=== PATIENT | male | born 1955 | race Caucasian/White ===

== ENCOUNTER 2021-11-25 06:30 | Emergency (ER) | payer MEDICARE ==
[~2021-11-25] VITALS: Ht 185.4 cm; Wt 118.0 kg
--- NOTE | 2021-11-25 06:36 | PHYS DOC ---
Past Medical History Past Medical History: Anxiety, Depression Past Surgical History: No Surgical History Smoking Status: Current Every Day Smoker Alcohol Use: Heavy Drug Use: Marijuana General Adult EDM: Chief Complaint: EYE PROBLEMS HPI: HPI: Patient is a 66 year old male who presents via private vehicle, ambulatory, with multiple facial and periocular lacerations. He reports that his injury occurred shortly prior to arrival. He reports that he tripped over a rolled up carpet and fell and hit his face against his bathtub. He denies loss of consciousness. He denies any premonitory symptoms, he denies dizziness, nausea or vomiting. He denies any visual acuity changes or vision loss. Denies chest pain or dyspnea.. He has a rather large, jagged laceration of his mid forehead, between his eyes, he also has a significant laceration of his right eye, he has avulsed his medial canthus and lower lid, he has a laceration just below his lower lid as well. He is unsure of his tetanus status. He does not take anticoagulant medications. Review of Systems: Review of Systems: Constitutional: Denies fever or chills. [] Eyes: Denies change in visual acuity. Right lower eyelid laceration, right medial canthus laceration/avulsion. No vision loss. No actual ocular pain. HENT: Denies nasal congestion or sore throat. Denies dental trauma. Denies difficulty swallowing. Denies epistaxis or rhinorrhea. Facial lacerations and right periocular lacerations. Respiratory: Denies cough or shortness of breath. [] Cardiovascular: Denies chest pain or edema. [] GI: Denies abdominal pain, nausea, vomiting Musculoskeletal: Denies back pain or joint pain. [] Integument: Facial lacerations Neurologic: Denies headache, focal weakness or sensory changes. Denies dizziness or syncope. Psychiatric: Chronic anxiety Heart Score: C/O Chest Pain: No Risk Factors: Risk Factors: DM, Current or recent (<one month) smoker, HTN, HLP, family history of CAD, obesity. Risk Scores: Score 0 - 3: 2.5% MACE over next 6 weeks - Discharge Home Score 4 - 6: 20.3% MACE over next 6 weeks - Admit for Clinical Observation Score 7 - 10: 72.7% MACE over next 6 weeks - Early Invasive Strategies Physical Exam: PE: Constitutional: Well developed, well nourished, no acute distress, non-toxic appearance. [] HENT: There is a jagged laceration of his mid forehead, between his eyes. There is subcutaneous tissue involvement with multiple flaps. No active bleeding. No significant cephalhematoma is noted. Oropharynx is patent and clear, no dental trauma, TMs are clear bilaterally, nares are patent without rhinorrhea epistaxis. Septum appears midline. The right medial canthus is completely avulsed away, lacerated, is somewhat sagging underneath the right eye. He has a subcutaneous linear laceration just below the mid lower eyelid as well. Aside from the canthus being lacerated, there is no other lid laceration noted. Eyes: PERRL, EOMI, conjunctiva normal, no discharge. No hyphema noted. No enophthalmos or exophthalmos noted. No pain with extraocular movement. Globes appear to be grossly intact. There is minimal soft tissue swelling and bruising around the lower right eyelid and laceration sites, but no periorbital edema, ecchymoses are noted. Neck: Normal range of motion, no tenderness, supple, no stridor. Trachea is midline. Cardiovascular: Warm and well-perfused appearing, no peripheral edema, +2 radial pulses bilaterally Lungs & Thorax: Respirations are nonlabored. Equal chest rise. Speaks in full and clear sentences. Skin: Facial and periocular lacerations as above. Back: No deformity, full range of motion Extremities: No limb deformity, no edema, no limb tenderness Neurologic: He is awake, alert, oriented x3, cranial nerves II through XII are grossly intact, sensation is grossly intact, gross motor intact, gait is steady, speech is clear and fluent Psychologic: He is anxious but cooperative EKG: EKG: [] Radiology/Procedures: Radiology/Procedures: IMAGING REPORT Signed PATIENT: NILSA DOMINGUEZ ACCOUNT: [id number] : 1955 LOCATION: ER AGE: 66 SEX: M EXAM STATUS: REG ER ORD. PHYSICIAN: BIRD MAR DO REASON: fall, facial injury PROCEDURE: CT MAXILLOFACIAL WO CONTRAST EXAM: CT head, facial bones, and cervical spine without contrast INDICATION: Fall, facial injury COMPARISON: None TECHNIQUE: Axial CT imaging through the head, facial bones, and cervical spine without intravenous contrast. Sagittal and coronal reformats were obtained. One or more of the following individualized dose reduction techniques were utilized for this examination: 1. Automated exposure control 2. Adjustment of the mA and/or kV according to patient size 3. Use of iterative reconstruction technique. FINDINGS: CT head: No intracranial hemorrhage, acute infarct, or mass lesion. Ventricles and sulci are mildly enlarged. Pappas-white matter differentiation is maintained. The skull and scalp are intact. Small mucous retention cyst in the left maxillary sinus. Paranasal sinuses otherwise clear. There are surgical changes of the left mastoid air cells. Globes and orbits are intact. 1.1 cm probable sebaceous cyst in the left occipital scalp. CT facial bones: No acute fracture. Small retention cyst in the left maxillary sinus. Paranasal sinuses are otherwise clear. There are surgical changes of the left mastoid air cells. Right mastoid air cells are clear. The globes and orbits are intact. Small soft tissue laceration/contusion over the right cheek with some adjacent soft tissue gas. 1.1 cm subcutaneous change nodule along left occipital scalp, likely a sebaceous cyst. CT cervical spine: No acute fracture. There is straightening of lordosis. There is 2 mm anterolisthesis of C4 on C5 and C5 on C6. Moderate disc space narrowing at C6-C7 with anterior osteophytes. Milder disc space narrowing elsewhere. Multilevel facet arthrosis, severe on the right as C4-C5 and on the left at C5-C6. Very degrees of foraminal narrowing, severe on the right at C4-C5. Moderate at several other levels. No bony canal narrowing. Prevertebral soft tissues normal. IMPRESSION: 1. No acute intracranial abnormality. 2. No acute facial fracture. Soft tissue laceration/contusion of the right cheek. 3. No acute osseous abnormality of the cervical spine. 4. Multilevel degenerative disc disease and facet arthrosis. Electronically signed by: Thelma Lentz MD (11/25/2021 7:39 AM) [id number] DICTATED and SIGNED BY: THELMA LENTZ MD DATE: 11/25/21 [id number] 0 Course & Med Decision Making: Course & Med Decision Making Pertinent Labs and Imaging studies reviewed. (See chart for details) The patient is kept n.p.o. He declined pain medication. Tetanus is updated. He tolerated laceration repair well. See associated note for details of this. The patient's eyelid injury is quite complex, I feel he needs to be seen by ophthalmology and oculoplastics. I have recommended transfer to [facility] I spoke with transfer line, the patient will be transported to 's ER, the patient will be seen by Myesha Bae of ophthalmology. The patient understands the plan of care. Dragon Disclaimer: Dragon Disclaimer: This electronic medical record was generated, in whole or in part, using a voice recognition dictation system. Laceration Repair Lac Repair Indication: Complex laceration of the mid forehead Procedure: The patient was placed in the appropriate position, supine on the ED gurney. 1% lidocaine with epinephrine was utilized for local anesthesia, adequate anesthesia was achieved. The area was then cleaned with Betadine and irrigated copiously with normal saline. The wound was explored. No visible foreign bodies are noted. No gross contamination. Minimal sharp debridement was required. The laceration was closed in 2 layers. Utilized 5-0 Vicryl subcuticular sutures for deep wound closure. A total of 5 sutures were utilized for this purpose. The skin was closed utilizing simple interrupted technique, and a total of twelve 5-0 Ethilon sutures were used. Adequate wound eversion, hemostasis and closure was achieved. The wound was dressed with gauze covering. Total repaired wound length: 6 cm The patient tolerated the procedure well Complications: None. Departure Departure Impression: Primary Impression: Complex laceration of face Qualified Codes: S01.91XA - Laceration without foreign body of unspecified part of head, initial encounter Additional Impressions: Avulsion of eyelid Traumatic laceration of right lacrimal duct Qualified Codes: S01.111A - Laceration without foreign body of right eyelid and periocular area, initial encounter Laceration, eyelid, right Qualified Codes: S01.111A - Laceration without foreign body of right eyelid and periocular area, initial encounter Alcohol intoxication Qualified Codes: F10.929 - Alcohol use, unspecified with intoxication, unspecified Disposition: 02 [facility] Condition: STABLE BIRD MAR DO Nov 25, 2021 06:36
[2021-11-25] MEDS ORDERED: TETANUS AND DIPHTHERIA TOX/PF 0.5 ML DISP.SYRIN. VAX IM ONE (06:45)
[2021-11-25] MEDS ORDERED: LIDOCAINE 1%/EPI 1:100,000 20 ML VIAL. INJ ONE (06:45)
[2021-11-25 07:04] LABS: BASO # 0.1 x10^3/uL (0.0-0.2); BASO % 0 % (0-3); EOS # 0.3 x10^3/uL (0.0-0.7); EOS % 2 % (0-3); HEMATOCRIT 40.7 % (39.0-53.0); HEMOGLOBIN 13.6 g/dL (13.0-17.5); LYMPH # 2.1 x10^3/uL (1.0-4.8); LYMPH % 15 % (24-48); MEAN CORPUSCULAR HEMOGLOBIN 33 pg (25-35); MEAN CORPUSCULAR HGB CONC 33 g/dL (31-37); MEAN CORPUSCULAR VOLUME 99 fL (79-100); MONO # 0.8 x10^3/uL (0.0-1.1); MONO % 6 % (0-9); NEUT # 10.6 x10^3/uL (1.8-7.7); NEUT % 76 % (31-73); PLATELET COUNT 238 x10^3/uL (140-400); RED BLOOD COUNT 4.13 x10^6/uL (4.30-5.70); RED CELL DISTRIBUTION WIDTH 12.8 % (11.5-14.5); WHITE BLOOD COUNT 13.9 x10^3/uL (4.0-11.0)
[2021-11-25 07:06] LABS: CALCIUM 8.5 mg/dL (8.5-10.1); CREATININE 1.3 mg/dL (0.7-1.3); GFR 55.4; POTASSIUM 3.5 mmol/L (3.5-5.1)
--- NOTE | 2021-11-25 07:41 | RAD ---
EXAM: CT head, facial bones, and cervical spine without contrast INDICATION: Fall, facial injury COMPARISON: None TECHNIQUE: Axial CT imaging through the head, facial bones, and cervical spine without intravenous co ntrast. Sagittal and coronal reformats were obtained. One or more of the following individualized dose reduction techniques were utilized for this examinat ion: 1. Automated exposure control 2. Adjustment of the mA and/or kV according to patient size 3. Use of iterative reconstruction technique. FINDINGS: CT head: No intracranial hemorrhage, acute infarct, or mass lesion. Ventricles and sulci are mildly enlarged. Pappas-white matter differentiation is maintained. The skull and scalp are intact. Small mucous retenti on cyst in the left maxillary sinus. Paranasal sinuses otherwise clear. There are surgical changes of the left mastoid air cells. Globes and orbits are intact. 1.1 cm probable sebaceous cyst in the left occipital scalp. CT facial bones: No acute fracture. Small retention cyst in the left maxillary sinus. Paranasal sinus es are otherwise clear. There are surgical changes of the left mastoid air cells. Right mastoid air c ells are clear. The globes and orbits are intact. Small soft tissue laceration/contusion over the rig ht cheek with some adjacent soft tissue gas. 1.1 cm subcutaneous change nodule along left occipital s calp, likely a sebaceous cyst. CT cervical spine: No acute fracture. There is straightening of lordosis. There is 2 mm anterolisthesis of C4 on C5 and C5 on C6. Moderate disc space narrowing at C6-C7 with anterior osteophytes. Milder disc space narrowi ng elsewhere. Multilevel facet arthrosis, severe on the right as C4-C5 and on the left at C5-C6. Very degrees of foraminal narrowing, severe on the right at C4-C5. Moderate at several other levels. No b natalie canal narrowing. Prevertebral soft tissues normal. IMPRESSION: 1. No acute intracranial abnormality. 2. No acute facial fracture. Soft tissue laceration/contusion of the right cheek. 3. No acute osseous abnormality of the cervical spine. 4. Multilevel degenerative disc disease and facet arthrosis. Electronically signed by: Thelma Lentz MD (11/25/2021 7:39 AM) [id number]
[2021-11-25 09:30] VITALS: BP 139/84
== END 2021-11-25 10:09 | disposition short-term general hospital (02) ==
LOC: ER 06:30
DX: S01.111A Laceration without foreign body of right eyelid and periocular area, initial encounter (principal); S01.91XA Laceration without foreign body of unspecified part of head, initial encounter; F17.200 Nicotine dependence, unspecified, uncomplicated; F10.229 Alcohol dependence with intoxication, unspecified; Y90.4 Blood alcohol level of 80-99 mg/100 ml; W18.09XA Striking against other object with subsequent fall, initial encounter; Y93.89 Activity, other specified; Y92.89 Other specified places as the place of occurrence of the external cause; Y99.8 Other external cause status
CPT/HCPCS: 12053; 36415; 70450; 70486; 72125; 80048; 85025; 90471; 90714; 99285; G0480; J3490